=== PATIENT | female | born 2000 | race Asian ===

== ENCOUNTER 2024-05-13 21:27 | Emergency (ER) | payer MEDICAID ==
[~2024-05-13] VITALS: Ht 170.2 cm; Wt 97.0 kg
[2024-05-13 22:16] VITALS: TEMP 36.8; O2SAT 99
[2024-05-13 22:18] VITALS: O2SAT 99
[2024-05-13] MEDS: KETOROLAC 15MG/ML VIAL IM ONE (22:30)
[2024-05-13 23:03] LABS: CLARITY URINE CLEAR (CLEAR); COLOR URINE YELLOW (YELLOW); GLUCOSE URINE NEGATIVE (NEGATIVE); KETONES URINE 1+ (NEGATIVE); LEUKOCYTE ESTERASE URINE TRACE (NEGATIVE); NITRITE URINE NEGATIVE (NEGATIVE); OCCULT BLOOD URINE NEGATIVE (NEGATIVE); PROTEIN URINE NEGATIVE (NEGATIVE); SPECIFIC GRAVITY URINE 1.027 (1.005-1.030); UROBILINOGEN URINE 0.2 E.U./dL (0.2-1.0)
[2024-05-13 23:34] LABS: SQUAMOUS EPITHELIAL CELL URINE 2+ /lpf (RARE/1+)
[2024-05-13 23:37] LABS: RBC URINE 0-2 /hpf (0-2)
[2024-05-13 23:38] LABS: BACTERIA URINE TRACE
[2024-05-14] MEDS: LIDOCAINE 5% PATCH TOP SCH (03:00)
[2024-05-14] MEDS: KETOROLAC 15MG/ML VIAL IM NR (03:29)
[2024-05-14] MEDS: CYCLOBENZAPRINE 10MG TABLET PO SCH ×2 (03:29→07:34)
[2024-05-14] MEDS ORDERED: CYCL10TA21 MT (04:58)
[2024-05-14] MEDS ORDERED: NAPR-1176 MT (04:58)
[2024-05-14] MEDS ORDERED: LIDO700A15 TP (04:58)
[2024-05-14 07:33] VITALS: BP 134/90; PULSE 99; RESP 20
[2024-05-14] MEDS: KETOROLAC 15MG/ML VIAL IM ONE (07:33)
[2024-05-14] MEDS: KETOROLAC 30MG/ML VIAL IM ONE (07:34)
== END 2024-05-14 07:35 | disposition home or self-care (01) ==
LOC: ER 21:27
DX: M54.9 Dorsalgia, unspecified (principal); Z79.1 Long term (current) use of non-steroidal anti-inflammatories (NSAID)
CPT/HCPCS: 99284; 81003; 81025; 96372; J1885